=== PATIENT | female | born 1970 | race Caucasian/White ===

== ENCOUNTER → 2016-12-21 | Outpatient (CLI) | payer OTHER, BC ==
[2016-09-10 22:00] VITALS: BP 122/70
[~2016-12-21] MED LIST: ACET325T9 PO; CITA20TA9 PO; DICL100G7 TP; HYDR-971 PO; MELO-150 PO
--- NOTE | 2016-12-21 09:13 | RAD ---
Indication chest congestion. Sore throat. Aeration of symptoms one week. PA and lateral views of the chest were obtained. Comparison is made to a study 03/03/2014. The heart and pulmonary vessels appear normal. The lungs are clear. There is no pleural fluid or pneumothorax. There has not been a significant change compared to the previous exam. IMPRESSION: No acute or focal process. No significant change
== END | disposition home or self-care (01) ==
LOC: DXRADRC 08:48
PROVIDERS: ATTEND Physician Assistant Medical
DX: R09.89 Other specified symptoms and signs involving the circulatory and respiratory systems (principal); J02.9 Acute pharyngitis, unspecified
CPT/HCPCS: 71020

== ENCOUNTER 2017-10-10 05:34 | Emergency (ER) | payer BC ==
[~2017-10-10] VITALS: Ht 157.5 cm; Wt 67.9 kg
[~2017-10-10 05:34] MED LIST changes: +DICL100G18 TP; -DICL100G7 TP; -MELO-150 PO; +MELO15TA23 PO
[2017-10-10] MEDS ORDERED: HYDROcodone/APAP 10/325 1 TAB TABLET PO ONE (06:30)
[2017-10-10] MEDS ORDERED: HYDR-965 PO (06:48)
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
[2017-10-10 07:00] VITALS: BP 120/64
[2017-10-10] MEDS ORDERED: DIPHTH,PERTUSS(ACELL),TET TOX 0.5 ML DISP.SYRIN. VAX IM ONE (07:00)
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
== END 2017-10-10 07:00 | disposition home or self-care (01) ==
LOC: ER 05:34
DX: S49.92XA Unspecified injury of left shoulder and upper arm, initial encounter (principal); M79.7 Fibromyalgia; F10.129 Alcohol abuse with intoxication, unspecified; V98.8XXA Other specified transport accidents, initial encounter; Y93.89 Activity, other specified; Y99.8 Other external cause status; Y92.89 Other specified places as the place of occurrence of the external cause
CPT/HCPCS: 73030; 73080; 90471; 90715; 99284-25

== ENCOUNTER 2019-10-01 19:25 | Emergency (ER) | payer BC ==
[~2019-10-01] VITALS: Ht 157.5 cm; Wt 67.9 kg
[~2019-10-01 19:25] MED LIST changes: +HYDR-3165 PO; +HYDR-3166 PO; -HYDR-971 PO
[2019-10-01 20:05] VITALS: BP 117/77
[2019-10-01] MEDS ORDERED: HYDROcodone/APAP 5/325MG 1 TAB TABLET PO ONE (20:15)
[2019-10-01] MEDS ORDERED: AMOX1TAB61 PO (20:16)
[2019-10-01] MEDS ORDERED: HYDR-3165 PO (20:16)
--- NOTE | 2019-10-02 06:29 | PHYS DOC ---
Past History Past Medical History: No Pertinent History Past Surgical History: Hysterectomy Smoking: Non-smoker Alcohol Use: None Drug Use: None Adult General Chief Complaint Chief Complaint: EARACHE/EAR PAIN HPI HPI Patient is a 49-year-old female presents with upper respiratory tract infections with sinus congestion rhinorrhea for the past several days with right ear pain and fullness for the past 24 hours. Pain is described as sharp and rated moderate to severe. [] Review of Systems Review of Systems Review of symptoms as per history of present illness. All other review symptoms are negative. All other systems were reviewed and found to be within normal limits, except as documented in this note. Current Medications Current Medications Current Medications Medications (Trade) Dose Ordered Sig/Isaiah Start Time Stop Time Status Last Admin Dose Admin Acetaminophen/ Hydrocodone Bitart (Lortab 5/325) 1 tab 1X ONCE 10/01/19 20:15 10/01/19 20:16 DC 10/01/19 20:32 1 TAB Allergies Allergies Allergies Coded Allergies Type Severity Reaction Last Updated Verified No Known Drug Allergies 10/10/17 No Physical Exam Physical Exam Constitutional: Well developed, well nourished, no acute distress, non-toxic appearance. [] HENT: Normocephalic, atraumatic, bilateral external ears normal, TM,red with effusion, fusion oropharynx moist, no oral exudates, nose congestion with clear rhinorrhea.[] Eyes: PERRLA, EOMI, conjunctiva normal, no discharge. [] Neck: Normal range of motion, no tenderness, supple, no stridor. [] Cardiovascular:Heart rate regular rhythm, no murmur [] Neurologic: Alert and oriented X 3, normal motor function, normal sensory function, no focal deficits noted. [] Psychologic: Affect normal, judgement normal, mood normal. [] Current Patient Data Vital Signs Vital Signs Date Time Temp Pulse Resp B/P (MAP) Pulse Ox O2 Delivery O2 Flow Rate FiO2 10/01/19 20:32 18 99 Room Air 10/01/19 20:05 99.9 108 EKG EKG [] Radiology/Procedures Radiology/Procedures [] Course & Med Decision Making Course & Med Decision Making Pertinent Labs and Imaging studies reviewed. (See chart for details) [Rhinosinusitis with otitis media] Dragon Disclaimer Dragon Disclaimer This electronic medical record was generated, in whole or in part, using a voice recognition dictation system. Departure Departure: Impression: Primary Impression: Upper respiratory disease Additional Impression: Right otitis media with effusion Disposition: HOME, SELF-CARE Condition: STABLE Patient Instructions: Otitis Media with Effusion Additional Instructions: Please take ibuprofen for pain and Mucinex D [id number] for nasal congestion. Additionally, take newly prescribed medications as directed and follow-up with your PCP in 3-5 days for reevaluation if symptoms persist.. Scripts Hydrocodone Bit/Acetaminophen (NORCO 5-325 TABLET) 1 Each Tablet 1 TAB PO TID, #10 TAB Prov: GISELLA HAYS DO 10/01/19 Amoxicillin/Potassium Clav (AUGMENTIN 875-125 TABLET) 1 Each Tablet 1 TAB PO BID for 10 Days, #20 TAB 0 Refills Prov: GISELLA HAYS DO 10/01/19 Problem Qualifiers GISELLA HAYS DO Oct 02, 2019 06:29
== END 2019-10-01 20:35 | disposition home or self-care (01) ==
LOC: ER 19:25
DX: J06.9 Acute upper respiratory infection, unspecified (principal); H65.91 Unspecified nonsuppurative otitis media, right ear
CPT/HCPCS: 99283